=== PATIENT | male | born 1945 | race African-American/Black ===

== ENCOUNTER 2021-03-30 11:52 | Emergency (ER) | payer MEDICARE, OTHER ==
[~2021-03-30] VITALS: Ht 180.3 cm; Wt 99.0 kg
[~2021-03-30 11:52] MED LIST: METF-414 PO; SODI454P4 PO
[2021-03-30 11:59] VITALS: BP 164/83
== END 2021-03-30 13:34 | disposition home or self-care (01) ==
LOC: ER 11:52
DX: R51.9 Headache, unspecified (principal); E11.9 Type 2 diabetes mellitus without complications; W07.XXXA Fall from chair, initial encounter; Y93.89 Activity, other specified; Y92.9 Unspecified place or not applicable; Z88.0 Allergy status to penicillin
CPT/HCPCS: 99284

== ENCOUNTER 2022-08-11 17:49 | Inpatient (IN) | payer OTHER ==
[~2022-08-11] VITALS: Ht 182.9 cm; Wt 96.2 kg
[2022-08-11 20:16] LABS: BASOPHILS % 0.9 % (0.0-2.0); HEMATOCRIT. 28.5 % (42.0-52.0); MEAN CORPUSCULAR HEMOGLOBIN 29.9 pg (28.0-32.0); MEAN CORPUSCULAR VOLUME 85.2 fL (80.0-94.0); MEAN PLATELET VOLUME 6.8 fl (7.4-10.4); MONOCYTES % 10.2 % (2.0-8.0); NEUTROPHILS % 46.9 % (40.0-76.0); PLATELET 183 x1000/uL (130-400); RED BLOOD CELL COUNT 3.35 mill/uL (4.7-6.1); RED CELL DISTRIBUTION WIDTH 14.2 % (11.6-14.6)
[2022-08-11 20:48] LABS: CHLORIDE 110 mEq/L (98-107)
[2022-08-11 23:57] LABS: INR 1.1; PARTIAL THROMBOPLASTIN TIME 28.8 sec (23.4-31.0); PROTHROMBIN TIME 11.8 sec (9.6-11.0)
[2022-08-12] MEDS ORDERED: ONDANSETRON HCL 4MG/2ML INJ IV PRN (11:45)
[2022-08-12] MEDS ORDERED: ENOXAPARIN 40MG/0.4ML SYR SUBCUT SCH (11:45)
[2022-08-12] MEDS ORDERED: ACETAMINOPHEN 325MG TABLET PO PRN (11:45)
[2022-08-12] MEDS ORDERED: CLONIDINE 0.1MG TABLET PO PRN (11:45)
[2022-08-12] MEDS ORDERED: ENOXAPARIN 100MG/ML SYR SUBCUT SCH (12:00)
[2022-08-12] MEDS: SODIUM CHLORIDE 0.9% 1,000 ML IV SCH (12:22)
[2022-08-12] MEDS ORDERED: BENA5TAB40 PO (13:05)
[2022-08-12] MEDS ORDERED: FURO40TA5 PO (13:05)
[2022-08-12] MEDS ORDERED: ASPI-1406 PO (13:05)
[2022-08-12] MEDS ORDERED: FINA5TAB11 (13:05)
[2022-08-12] MEDS ORDERED: CALC0.253 PO (13:05)
[2022-08-12] MEDS ORDERED: ATOR10TA69 PO (13:05)
[2022-08-12] MEDS: ASPIRIN 81MG EC TABLET PO SCH (13:28)
[2022-08-12 15:12] VITALS: BP 162/79
[2022-08-12 15:20] VITALS: BP 162/79
[2022-08-12 16:00] VITALS: BP 146/70
[2022-08-12 17:52] LABS: CREATINE KINASE MB FRACTION 6.6 ng/mL (0.5-3.6)
[2022-08-12 18:13] LABS: HEPATITIS B SURFACE ANTIGEN NEGATIVE
[2022-08-12 19:58] VITALS: BP 152/97
[2022-08-12] MEDS: AMLODIPINE 5MG TABLET PO SCH (20:49)
[2022-08-12] MEDS ORDERED: ATORVASTATIN CALCIUM 10MG TABLET PO SCH (21:00)
[2022-08-12 23:17] LABS: CLARITY URINE CLEAR (CLEAR); COLOR URINE YELLOW (YELLOW); KETONES URINE NEGATIVE (NEGATIVE); LEUKOCYTE ESTERASE URINE 2+ (NEGATIVE); NITRITE URINE NEGATIVE (NEGATIVE); OCCULT BLOOD URINE NEGATIVE (NEGATIVE); PROTEIN URINE 2+ (NEGATIVE); SPECIFIC GRAVITY URINE 1.013 (1.005-1.030); UROBILINOGEN URINE 0.2 E.U./dL (0.2-1.0)
[2022-08-12 23:27] LABS: *AMPHETAMINES SCREEN URINE NEGATIVE (NEGATIVE); *BARBITURATES SCREEN URINE NEGATIVE (NEGATIVE); *BENZODIAZEPINES SCREEN URINE NEGATIVE (NEGATIVE); *COCAINE SCREEN URINE NEGATIVE (NEGATIVE); CANNABINOID URINE SCREEN NEGATIVE (NEGATIVE); METHADONE URINE SCREEN NEGATIVE (NEGATIVE); OPIATES URINE SCREEN NEGATIVE (NEGATIVE); PHENCYCLIDINE URINE SCREEN NEGATIVE (NEGATIVE)
[2022-08-12] MEDS ORDERED: DEXTROSE 50% WATER 50ML SYRINGE IV PRN (23:30)
[2022-08-12 23:40] LABS: CREATINE KINASE MB FRACTION 5.6 ng/mL (0.5-3.6)
[2022-08-13 00:06] VITALS: BP 148/78
[2022-08-13 04:01] VITALS: BP 155/81
[2022-08-13] MEDS: SODIUM CHLORIDE 0.9% 1,000 ML IV SCH (04:44)
[2022-08-13] MEDS: BLOOD SUGAR DIAGNOSTIC STRIP TEST SCH ×2 (06:48→12:55)
[2022-08-13 07:20] LABS: BASOPHILS % 0.3 % (0.0-2.0); HEMATOCRIT. 28.8 % (42.0-52.0); LYMPHOCYTES % 45.3 % (20.0-50.0); MEAN CORPUSCULAR HEMOGLOBIN 29.1 pg (28.0-32.0); MEAN CORPUSCULAR VOLUME 84.3 fL (80.0-94.0); MEAN PLATELET VOLUME 7.4 fl (7.4-10.4); MONOCYTES % 13.2 % (2.0-8.0); NEUTROPHILS % 39.2 % (40.0-76.0); PLATELET 176 x1000/uL (130-400); RED BLOOD CELL COUNT 3.42 mill/uL (4.7-6.1); RED CELL DISTRIBUTION WIDTH 14.4 % (11.6-14.6)
[2022-08-13] MEDS: INSULIN LISPRO 100 UNITS/ML SUBCUT SCH ×2 (07:20→12:20)
[2022-08-13 08:00] VITALS: BP 159/88
[2022-08-13] MEDS ORDERED: SODIUM POLYSTYRENE SULFONATE 15 G/60 ML BOT PO NR (08:00)
[2022-08-13] MEDS: ASPIRIN 81MG EC TABLET PO SCH (08:19)
[2022-08-13] MEDS: AMLODIPINE 5MG TABLET PO SCH (08:19)
[2022-08-13] MEDS ORDERED: CALCITRIOL 0.25MCG CAPSULE PO SCH (09:00)
[2022-08-13] MEDS ORDERED: FINASTERIDE 5MG TABLET PO SCH (09:00)
[2022-08-13] MEDS ORDERED: BENAZEPRIL 5MG TABLET PO SCH (09:00)
[2022-08-13] MEDS ORDERED: FUROSEMIDE 40MG TABLET PO SCH (09:00)
[2022-08-13] MEDS ORDERED: ENOXAPARIN 30MG/0.3ML SYR SUBCUT SCH (09:00)
[2022-08-13 09:50] VITALS: BP 159/88
[2022-08-13] MEDS ORDERED: CLONIDINE 0.1MG TABLET PO SCH (14:00)
== END 2022-08-13 13:12 | disposition home or self-care (01) | DRG 206 ==
LOC: ER 17:49 → 7WST 08-12 02:36 → MICUSO 08-12 03:38 → 3WST 08-12 14:50
PROVIDERS: ADMIT Internal Medicine; ATTEND Internal Medicine
DX: M94.0 Chondrocostal junction syndrome [Tietze] (principal); N17.9 Acute kidney failure, unspecified; N39.0 Urinary tract infection, site not specified; I12.9 Hypertensive chronic kidney disease with stage 1 through stage 4 chronic kidney disease, or unspecified chronic kidney disease; N18.9 Chronic kidney disease, unspecified; N40.0 Benign prostatic hyperplasia without lower urinary tract symptoms; E11.22 Type 2 diabetes mellitus with diabetic chronic kidney disease; E78.00 Pure hypercholesterolemia, unspecified; E78.5 Hyperlipidemia, unspecified; Z88.0 Allergy status to penicillin; Z90.49 Acquired absence of other specified parts of digestive tract; Z79.899 Other long term (current) drug therapy; D64.9 Anemia, unspecified
CPT/HCPCS: 36415; 71045; 80048; 80053; 80305; 81003; 82550; 82553; 82962; 83036; 83880; 84484; 85025; 86803; 87340; 93005; 93306; 93970; 99285; J1650; J7030

== ENCOUNTER 2023-02-26 18:21 | Emergency (ER) | payer MEDICARE, OTHER ==
[~2023-02-26] VITALS: Ht 182.9 cm; Wt 97.5 kg
[~2023-02-26 18:21] MED LIST changes: +ASPI-1406 PO; +ATOR10TA69 PO; +BENA5TAB40 PO; +CALC0.253 PO; +FINA5TAB11; +FURO40TA5 PO
[2023-02-26 18:51] VITALS: O2SAT 98
[2023-02-26 19:15] LABS: BASOPHILS % 0.6 % (0.0-2.0); EOSINOPHILS % 0.4 % (0.0-5.0); HEMATOCRIT. 30.2 % (42.0-52.0); HEMOGLOBIN. 10.1 g/dL (14.0-18.0); LYMPHOCYTES % 14.1 % (20.0-50.0); MEAN CORPUSCULAR HEMOGLOBIN 27.9 pg (28.0-32.0); MEAN CORPUSCULAR HGB CONC 33.5 g/dL (31.0-37.0); MEAN CORPUSCULAR VOLUME 83.2 fL (80.0-94.0); MONOCYTES % 9.2 % (2.0-8.0); NEUTROPHILS % 75.7 % (40.0-76.0); PLATELET 182 x1000/uL (130-400); RED BLOOD CELL COUNT 3.63 mill/uL (4.7-6.1); RED CELL DISTRIBUTION WIDTH 14.2 % (11.6-14.6); WHITE BLOOD COUNT 5.9 x1000/uL (4.5-11.0)
[2023-02-26 19:22] LABS: CHLORIDE 108 mEq/L (98-107); INDEX HEMOLYSI 1 (1-3); INDEX ICTERIC 1 (1-4); INDEX LIPEMIC 1 (1-3); POTASSIUM 4.6 mEq/L (3.5-5.1); SODIUM 136 mEq/L (136-145)
[2023-02-26 19:31] LABS: ALANINE AMINOTRANSFERASE 27 IU/L (13-61); ALBUMIN 3.8 g/dL (3.4-5.0); ASPARTATE AMINOTRANSFERASE 26 IU/L (15-37); BILIRUBIN TOTAL 0.5 mg/dL (0.1-1.0); CALCIUM 8.9 mg/dL (8.5-10.1); CARBON DIOXIDE 22 mEq/L (21-32); CREATININE 2.5 mg/dL (0.6-1.3); GLUCOSE 94 mg/dL (70-105); UREA NITROGEN BLOOD 34 mg/dL (7-21)
[2023-02-26 19:46] LABS: TROPONIN I HIGH SENSITIVITY 104 ng/L (<78)
[2023-02-26] MEDS ORDERED: ONDANSETRON HCL 4MG TABLET PO ONE (22:30)
[2023-02-26] MEDS ORDERED: ACETAMINOPHEN 325MG TABLET PO ONE (22:30)
[2023-02-26 23:04] LABS: CLARITY URINE CLEAR (CLEAR); COLOR URINE YELLOW (YELLOW); GLUCOSE URINE NEGATIVE (NEGATIVE); KETONES URINE 1+ (NEGATIVE); LEUKOCYTE ESTERASE URINE NEGATIVE (NEGATIVE); NITRITE URINE NEGATIVE (NEGATIVE); OCCULT BLOOD URINE 2+ (NEGATIVE); PH URINE 5.5 (4.5-8.0); PROTEIN URINE 3+ (NEGATIVE); SPECIFIC GRAVITY URINE 1.014 (1.005-1.030); UROBILINOGEN URINE 0.2 E.U./dL (0.2-1.0)
[2023-02-26 23:06] LABS: WBC URINE 0-2 /hpf (0-2); YEAST URINE NONE SEEN
[2023-02-26 23:21] LABS: BACTERIA URINE 1+; SQUAMOUS EPITHELIAL CELL URINE RARE /lpf (RARE/1+)
[2023-02-27] MEDS ORDERED: ASPIRIN 325MG EC TABLET PO NR (01:00)
[2023-02-27] MEDS ORDERED: SODIUM CHLORIDE 0.9% 1,000 ML IV ONE (01:15)
[2023-02-27 02:47] LABS: TROPONIN I HIGH SENSITIVITY 94 ng/L (<78)
[2023-02-27 08:41] VITALS: BP 125/59; PULSE 104; RESP 18; TEMP 98.4
== END 2023-02-27 08:52 | disposition short-term general hospital (02) ==
LOC: ER 18:21
DX: N17.9 Acute kidney failure, unspecified (principal); R10.30 Lower abdominal pain, unspecified; E86.0 Dehydration; D64.9 Anemia, unspecified; E11.9 Type 2 diabetes mellitus without complications; E78.00 Pure hypercholesterolemia, unspecified; I10 Essential (primary) hypertension; Z20.822 Contact with and (suspected) exposure to COVID-19
CPT/HCPCS: 99285; 74176; 71045; 87426; 80053; 81003; 85025; 87040; 87086; 84484 ×2; 36415 ×2; 93005; 96360; 82962; Q0162; C9803